=== PATIENT | male | born 1965 | race Two or more races ===

== ENCOUNTER 2021-01-24 17:25 | Inpatient (IN) | payer OTHER ==
[2021-01-25] MEDS ORDERED: ONDANSETRON *ODT* 4 MG TABLET SL PRN (00:38)
[2021-01-25] MEDS ORDERED: BISMUTH SUBSALICYLATE 524 MG/30 ML PO PRN (00:38)
[2021-01-25] MEDS ORDERED: MENTHOL/PHENOL 1 EACH UD MM PRN (00:38)
[2021-01-25] MEDS ORDERED: NICOTINE POLACRILEX 2 MG GUM BUC PRN (00:38)
[2021-01-25] MEDS ORDERED: LORazepam 1 MG TABLET PO PRN (00:38)
[2021-01-25] MEDS ORDERED: MAGNESIUM CITRATE 300 ML BOTTLE PO PRN (00:38)
[2021-01-25] MEDS ORDERED: MAGNESIUM HYDROX 2400MG/30ML ORAL SUSPENSION 30 ML CUP PO PRN (00:38)
[2021-01-25] MEDS ORDERED: MAG HYDROX/AL HYDROX/SIMETH 30 ML UNIT-DOSE CUP PO PRN (00:38)
[2021-01-25] MEDS ORDERED: ACETAMINOPHEN 325 MG TABLET (FP) PO PRN ×2 (00:38)
[2021-01-25 00:54] VITALS: BMI 30.3
[2021-01-25] MEDS: LORazepam 2 MG TABLET PO SCH ×4 (04:09→22:26)
[2021-01-25] MEDS: PRENATAL VITAMINS W/ FOLIC ACID TABLET (FP) PO SCH (10:37)
[2021-01-25] MEDS: NICOTINE 14 MG/24 HOURS TOPICAL PATCH TD SCH (10:37)
[2021-01-25 12:38] LABS: HEMOGLOBIN 14.5 GM/dL (11.7-16.9); MCH 35.1 pg (25.7-33.7); MCHC 33.8 g/dl (32.0-35.9); MEAN PLT VOLUME 8.7 fl (7.5-11.1); PLATELET COUNT 42 10^3/uL (134-434); RBC 4.13 M/mm3 (4.00-5.60); RDW 14.5 % (11.9-15.9); WHITE BLOOD COUNT 4.6 K/mm3 (4.0-10.0)
[2021-01-25 12:58] LABS: BLOOD UREA NITROGEN 7.9 mg/dL (7-18)
[2021-01-25 12:59] LABS: CALCIUM 9.1 mg/dL (8.5-10.1)
[2021-01-25 13:01] LABS: CREATININE 0.8 mg/dL (0.55-1.3)
[2021-01-25 13:03] LABS: BILIRUBIN,TOTAL 2.1 mg/dL (0.2-1)
[2021-01-25 13:05] LABS: TOT PROT 7.8 g/dl (6.4-8.2)
[2021-01-25] MEDS: METHOCARBAMOL 500 MG TABLET PO PRN ×2 (15:32→22:29)
[2021-01-25] MEDS ORDERED: FLUTICASONE PROP 0.05% 16 GM NASAL SPRAY NS SCH (18:30)
[2021-01-25] MEDS ORDERED: TIOTROPIUM/OLODATEROL HCL (STIOLTO) 4 GM INHALER IH SCH (18:45)
[2021-01-25] MEDS: PANTOPRAZOLE 20 MG TABLET PO SCH (19:36)
[2021-01-25] MEDS: ALBUTEROL SO4 HFA INHALER IH SCH ×2 (19:36→22:25)
[2021-01-25] MEDS ORDERED: MELATONIN 5 MG TABLETS PO SCH (22:00)
[2021-01-25] MEDS: THIAMINE HCL 100 MG TABLET (FP) PO SCH (22:25)
[2021-01-25] MEDS: ATORVASTATIN CA 40 MG TABLET (FP) PO SCH (22:25)
[2021-01-25] MEDS: SUVOREXANT 10 MG TABLET PO PRN (22:29)
[2021-01-25] MEDS: guaiFENesin/D-METHORPHAN TAB.ER.12H PO SCH (23:11)
[2021-01-25] MEDS: FLUTICASONE/UMECLIDIN/VILANTER (TRELEGY ELLIPTA 100-62.5-25) INAHLER IH SCH (23:11)
[2021-01-26] MEDS: ALBUTEROL SO4 HFA INHALER IH SCH ×3 (03:07→10:19)
[2021-01-26] MEDS: LORazepam 1 MG TABLET PO SCH ×4 (05:46→22:14)
[2021-01-26] MEDS: NICOTINE 14 MG/24 HOURS TOPICAL PATCH TD SCH (10:18)
[2021-01-26] MEDS: ASPIRIN COATED 81 MG TABLET.EC PO SCH (10:18)
[2021-01-26] MEDS: guaiFENesin/D-METHORPHAN TAB.ER.12H PO SCH (10:19)
[2021-01-26] MEDS: PANTOPRAZOLE 20 MG TABLET PO SCH (10:19)
[2021-01-26] MEDS: PRENATAL VITAMINS W/ FOLIC ACID TABLET (FP) PO SCH (10:19)
[2021-01-26] MEDS: FLUTICASONE/UMECLIDIN/VILANTER (TRELEGY ELLIPTA 100-62.5-25) INAHLER IH SCH (10:20)
[2021-01-26] MEDS: LOSARTAN POTASSIUM 50 MG TABLET PO SCH (10:22)
[2021-01-26] MEDS: METHOCARBAMOL 500 MG TABLET PO PRN ×2 (10:22→17:46)
[2021-01-26] MEDS: ALBUTEROL SO4 HFA INHALER IH PRN ×2 (13:32→22:13)
[2021-01-26] MEDS: ATORVASTATIN CA 40 MG TABLET (FP) PO SCH (22:14)
[2021-01-26] MEDS: THIAMINE HCL 100 MG TABLET (FP) PO SCH (22:14)
[2021-01-26] MEDS: guaiFENesin 600 MG TABLET.ER (FP) PO SCH (22:14)
[2021-01-26] MEDS: IBUPROFEN 400 MG TABLET (FP) PO PRN (22:16)
[2021-01-27] MEDS ORDERED: LORazepam 0.5 MG TABLET PO PRN
[2021-01-27] MEDS: LORazepam 0.5 MG TABLET PO SCH ×4 (06:22→22:04)
[2021-01-27] MEDS: LOSARTAN POTASSIUM 50 MG TABLET PO SCH (10:25)
[2021-01-27] MEDS: PANTOPRAZOLE 20 MG TABLET PO SCH (10:25)
[2021-01-27] MEDS: guaiFENesin 600 MG TABLET.ER (FP) PO SCH ×2 (10:25→22:04)
[2021-01-27] MEDS: PRENATAL VITAMINS W/ FOLIC ACID TABLET (FP) PO SCH (10:25)
[2021-01-27] MEDS: ASPIRIN COATED 81 MG TABLET.EC PO SCH (10:25)
[2021-01-27] MEDS: FLUTICASONE/UMECLIDIN/VILANTER (TRELEGY ELLIPTA 100-62.5-25) INAHLER IH SCH (10:26)
[2021-01-27] MEDS: NICOTINE 14 MG/24 HOURS TOPICAL PATCH TD SCH (10:26)
[2021-01-27] MEDS: METHOCARBAMOL 500 MG TABLET PO PRN ×2 (10:28→17:45)
[2021-01-27] MEDS: IBUPROFEN 400 MG TABLET (FP) PO PRN ×2 (13:18→22:04)
[2021-01-27 13:25] LABS: HEMATOCRIT 41.8 % (35.4-49); HEMOGLOBIN 13.8 GM/dL (11.7-16.9); MCH 34.8 pg (25.7-33.7); MCHC 33.1 g/dl (32.0-35.9); MEAN CELL VOLUME 105.2 fl (80-96); MEAN PLT VOLUME 9.4 fl (7.5-11.1); PLATELET COUNT 49 10^3/uL (134-434); RBC 3.97 M/mm3 (4.00-5.60); RDW 14.7 % (11.9-15.9); WHITE BLOOD COUNT 5.7 K/mm3 (4.0-10.0)
[2021-01-27 13:31] LABS: ALBUMIN 3.8 g/dl (3.4-5.0)
[2021-01-27 13:34] LABS: CREATININE 0.8 mg/dL (0.55-1.3)
[2021-01-27 13:36] LABS: BILIRUBIN,TOTAL 1.8 mg/dL (0.2-1); TOT PROT 7.3 g/dl (6.4-8.2)
[2021-01-27] MEDS: ALBUTEROL SO4 HFA INHALER IH PRN (17:45)
[2021-01-27] MEDS: SUVOREXANT 10 MG TABLET PO PRN (22:03)
[2021-01-27] MEDS: THIAMINE HCL 100 MG TABLET (FP) PO SCH (22:04)
[2021-01-27] MEDS: ATORVASTATIN CA 40 MG TABLET (FP) PO SCH (22:04)
[2021-01-28] MEDS ORDERED: LORazepam 0.5 MG TABLET PO ONE (05:00)
[2021-01-28 08:52] VITALS: BP 133/80; PULSE 71; TEMP 97.4
[2021-01-28] MEDS ORDERED: COVID-19 VAC,AD26(JANSSEN)/PF 0.5 ML IM ONE (09:00)
== END 2021-01-28 10:01 | disposition home or self-care (01) | DRG 775 ==
LOC: YASAS 17:25 → Y3N 01-25 03:39
PROVIDERS: ADMIT Allergy & Immunology; ATTEND Allergy & Immunology
PROC: HZ2ZZZZ Detoxification Services for Substance Abuse Treatment (ICD-10-PCS; principal; 2021-01-25)
DX: F10.230 Alcohol dependence with withdrawal, uncomplicated (principal); F17.210 Nicotine dependence, cigarettes, uncomplicated; F10.282 Alcohol dependence with alcohol-induced sleep disorder; F41.9 Anxiety disorder, unspecified; F43.10 Post-traumatic stress disorder, unspecified; D69.6 Thrombocytopenia, unspecified; I25.10 Atherosclerotic heart disease of native coronary artery without angina pectoris; I10 Essential (primary) hypertension; Z95.5 Presence of coronary angioplasty implant and graft; I25.2 Old myocardial infarction; E78.5 Hyperlipidemia, unspecified; E05.90 Thyrotoxicosis, unspecified without thyrotoxic crisis or storm; K21.9 Gastro-esophageal reflux disease without esophagitis; M06.9 Rheumatoid arthritis, unspecified; G47.30 Sleep apnea, unspecified; R74.8 Abnormal levels of other serum enzymes
CPT/HCPCS: 0031A; 36415; 71046-TC-FY; 80053; 85027; 86780; 91303; 93005; 93010; C9803; Q0162; U0003; U0005